=== PATIENT | female | born 1975 | race Hispanic/Latino ===

== ENCOUNTER 2016-06-08 05:56 | Day surgery (SDC) | payer BC, OTHER ==
[~2016-06-08 05:56] MED LIST: DECADRON IV ONE
[2016-06-08] MEDS ORDERED: NACL BACTERIOSTATIC INFILTRATI ONE (06:37)
[2016-06-08] MEDS ORDERED: XYLOCAINE MPF 2% ONE (07:04)
[2016-06-08] MEDS ORDERED: DIPRIVAN 10 MG/ML IV ONE ×2 (07:05→07:30)
[2016-06-08] MEDS ORDERED: SUBLIMAZE ONE (07:05)
--- NOTE | 2016-06-08 07:05 | Anesthesia Day of Surgery ---
Anesthesia Day of Surgery - Day of Surgery Patient Examined: Yes Patient H&P Reviewed: Yes Patient is NPO: Yes
--- NOTE | 2016-06-08 07:05 | Anesthesia Consultation ---
Anesthesia Consult and Med Hx Date of service: 06/08/16 - Airway Anesthetic Teeth Evaluation: Good ROM Head & Neck: Adequate Mental/Hyoid Distance: Adequate Mallampati Class: Class II - Pulmonary Exam CTA: Yes - Cardiac Exam Cardiac Exam: RRR - Pre-Operative Health Status ASA Pre-Surgery Classification: ASA1 Proposed Anesthetic Plan: General - Pulmonary SOB: No Hx Pneumonia: No - Central Nervous System Hx Psychiatric Problems: No - Other Systems Hx Alcohol Use: Yes (SOCIALLY) Hx Substance Use: No Hx Cancer: No
[2016-06-08] MEDS ORDERED: MARCAINE 0.25% INFILTRATI ONE ×2 (07:09→07:28)
[2016-06-08] MEDS ORDERED: XYLOCAINE 1%/ EPI 1:100,000 INFILTRATI ONE (07:09)
[2016-06-08] MEDS ORDERED: ZOFRAN ONE ×2 (07:32)
[2016-06-08] MEDS ORDERED: DECADRON ONE ×2 (07:32→08:04)
[2016-06-08] MEDS ORDERED: NACL 0.9% IR ONE (07:53)
[2016-06-08] MEDS ORDERED: NACL 0.9% 1000 ML 1,000 ML IV SCH (08:00)
[2016-06-08] MEDS ORDERED: CLEOCIN 900 MG/50 mL 900 MG/50 ML BAG IV NR (08:00)
[2016-06-08] MEDS ORDERED: VERSED IV NR (08:00)
[2016-06-08] MEDS ORDERED: PEPCID IV NR (08:00)
[2016-06-08] MEDS ORDERED: DECADRON IV ONE (08:06)
[2016-06-08] MEDS ORDERED: DILAUDID ONE (08:20)
--- NOTE | 2016-06-08 08:21 | Post Operative Note ---
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 Procedure: 1. Neurectomy with bursectomy third interspace left side. Anesthesia: GETA Surgeon: CARLOS TORRES Estimated blood loss: minimal Pathology: list (nerve and bursa from third interspace.) Specimen disposition: to lab Condition: stable Disposition: same day
--- NOTE | 2016-06-08 08:21 | Discharge Summary ---
Short Stay Discharge Plan Activity: no restrictions Weight Bearing Status: Touch Down Weight Bearing Diet: regular Wound: keep clean and dry Follow up with: PRIMARY CARE, [Primary Care Provider] - 7 Days
--- NOTE | 2016-06-08 08:41 | Post Anesthesia Evaluation ---
- Post Anesthesia Evaluation Patient Participated: Yes Airway Patent: Yes Stable Respiratory Function: Yes Nausea/Vomiting: No Temp > 96.8F: No Pain Manageable: Yes Adequeate Hydration: Yes Anesthesia Complications: No Block Receding Appropriately: Not Applicable Patient on Ventilator: No
[2016-06-08 09:18] VITALS: BP 120/73
--- NOTE | 2016-06-08 12:19 | Operative Report ---
SURGEON: Laureano Steward DPM MANAGEMENT ACCOUNTS MANAGER: None. PREOPERATIVE DIAGNOSIS: Painful neuroma, third interspace, left foot. POSTOPERATIVE DIAGNOSIS: Painful neuroma, third interspace, left foot with intermetatarsal space bursa. PROCEDURE: Neurectomy, third interspace with bursectomy. ANESTHESIA: General inhalational LMA with local 0.25% Marcaine plain x 5 mL. HEMOSTASIS: Pneumatic calf tourniquet 250 mmHg x 26 minutes. ESTIMATED BLOOD LOSS: Less than 1 mL. MATERIALS: None. INJECTABLES: 1 mL Decadron. PATHOLOGY: Nerve third interspace and bursa third interspace sent for pathologic diagnosis. COMPLICATIONS: None. OPERATIVE SUMMARY: On this date, the patient was deemed appropriate surgical candidate, placed on the operating room table in normal supine position. Following induction of LMA anesthesia, the following procedure was then carried out. NEURECTOMY WITH BURSECTOMY, THIRD INTERSPACE, LEFT FOOT: Attention was directed to the dorsal aspect of the third interspace in the left foot where a 3 cm linear incision was placed overlying this area. Dissection was carried through skin layer down to the level of superficial fascia with care to protect neurovascular structures. Electrocautery deemed necessary for surgical hemostasis. Dissection was carried through this layer down to the level of deep fascia. At this time, a very large swollen nerve was identified. This was the intermetatarsal nerve. I isolated the distal nerve branches third and fourth toes and went ahead and transected these sharply with a #15 blade. The nerve was grossly swollen. I reflected this back to little proximal to the deep transverse intermetatarsal ligament with the nerve appeared to be normal diameter and caliber. I went ahead and sharply resected this as well with a #15 blade. Nerve was removed in toto and then sent for pathologic diagnosis. Palpation of interspace revealed continued fullness in the area and it was identified that there was a very large bursa that had formed in this area. I went ahead and isolated this as well and I completely removed it. Due to the very large nature of this mass, I went ahead and sent this for pathologic diagnosis as well. Inspection of interspace revealed complete decompression. All other tissue was notably normal. Care was taken to assess the extension of the intrinsic musculature that it was intact as well as the metatarsophalangeal joint capsules were not violated. Wound was flushed with copious amounts of normal sterile saline. Deep ligature of 4-0 Vicryl was used to close the deep space followed by 4-0 Vicryl running suture to close subcutaneous tissue and 5-0 absorbable suture in running fashion to close the skin layer. Wound was painted with Betadine, Decadron was infiltrated into the area. Steri-Strips were applied. A dry sterile dressing was applied. The tourniquet was deflated at 26 minutes, normal capillary refill returned to all digits. The patient tolerated the above procedure and anesthesia well without complications. Vital signs stable throughout. She will be discharged with home going instructions to keep the dressings clean, dry, and intact and follow up in the office in 1 week. JOB# [id number] ARACELIS/TRAY
== END 2016-06-08 09:50 | disposition home or self-care (01) ==
LOC: OR 05:56
PROVIDERS: ATTEND Podiatrist Foot & Ankle Surgery
DX: G57.82 Other specified mononeuropathies of left lower limb (principal); Z72.89 Other problems related to lifestyle
CPT/HCPCS: 28080; 81025; 88304; J1100; J1170; J2250; J2405; J2704; J3010; J7030

== ENCOUNTER 2018-10-17 09:25 | Outpatient (CLI) | payer BC ==
--- NOTE | 2018-10-17 12:42 | Ultrasound Report ---
Transabdominal and transvaginal pelvic ultrasound INDICATION: Left pelvic pain COMPARISON: None available FINDINGS: The uterus measures [address] flexed. The uterus appears to be bicornuate or has a deep sept um. The right ovary measures 2.7 cm the left ovary measures 5.8 cm. There is a 1.4 cm cyst in the right o vary. There is a 2.9 cm complex cyst in the left ovary which is characteristic of a hemorrhagic cyst. There is a 2 cm cyst in the left ovary is well. There is a 1.4 x 0.5 x 2.6 cm structure in the left adnexa adjacent to the left ovary which might rep resent a irregular complex cyst. This could represent heterogeneous anterior within a mildly dilated fallopian tube. IMPRESSION: There are bilateral ovarian cysts. There is a 2.9 cm complex cyst in the left ovary. There is a 1.4 x 0.5 x 2.6 cm complex structure in the left adnexa may represent an irregular complex cyst arising from the ovary. This could represent complex material within the mildly dilated fallopi an tube. The uterus is either bicornuate or contains a deep septation. Signer Name: Carter Mack MD Signed: 10/17/2018 12:38 PM Workstation Name: [id number]
== END 2018-10-17 09:26 | disposition home or self-care (01) ==
LOC: SPVWC 09:25
PROVIDERS: ATTEND Surgery
DX: N83.202 Unspecified ovarian cyst, left side (principal); N83.201 Unspecified ovarian cyst, right side
CPT/HCPCS: 76830; 76856

== ENCOUNTER 2019-02-15 11:18 | Outpatient (CLI) | payer BC ==
--- NOTE | 2019-02-15 16:47 | Magnetic Resonance Report ---
MRI right elbow without contrast INDICATION: LATERAL EPICONDYLITIS, RIGHT ELBOW. COMPARISON: None FINDINGS: There is mild thickening and edema involving the common flexor and common extensor tendons , with no discrete tendon tear identified. No significant bone marrow edema identified. The biceps an d brachialis tendons are all intact. There is mildly heterogeneous bone marrow signal especially in t he distal humerus and in the proximal radius. There is also minimal edema involving the tip of the ol ecranon with mild overlying soft tissue swelling. The triceps tendon is slightly thickened with inter mediate internal T2 signal but otherwise intact. The collateral ligaments are not adequately evaluate d on this examination given lack of fat saturation fluid weighted technique. No gross neurovascular a bnormality identified. IMPRESSION: Limited exam as outlined above but there is mild tendinosis involving the common flexor, common extensor, and triceps tendons. Very mild edema is seen at the tip of the olecranon with mild overlying soft tissue swelling and no acute osseous abnormality or malalignment otherwise. No signifi cant DJD. Signer Name: Oli Pace MD Signed: 02/15/2019 4:43 PM Workstation Name: [id number]
== END 2019-02-15 11:19 | disposition home or self-care (01) ==
LOC: SPVIMAG 11:18
PROVIDERS: ATTEND Orthopaedic Surgery Hand Surgery
DX: M77.11 Lateral epicondylitis, right elbow (principal)

== ENCOUNTER 2019-03-24 10:47 | Outpatient (CLI) | payer BC ==
--- NOTE | 2019-03-27 10:36 | Mammography Report ---
DIGITAL SCREENING MAMMOGRAM WITH CAD, 03/24/2019 INDICATION: Routine screening mammography. TECHNIQUE: Digital bilateral 2D mammography was obtained in the craniocaudal and mediolateral obliq ue projections. This examination was interpreted with the benefit of Computer-Aided Detection analysi s. COMPARISON: 03/24/2018 FINDINGS: Breast Density: There are scattered areas of fibroglandular density. There is no evidence of dominant mass, suspicious calcifications or architectural distortion in eithe r breast. IMPRESSION: No mammographic evidence of malignancy. Follow up recommendation: Routine yearly BI-RADS Category 1: Negative. A "normal" or negative report should not discourage follow up or biopsy of a clinically significant f inding. A written summary of these findings will be mailed to the patient. The patient will be entered into a mammography reporting system which will generate a reminder letter for the patient's next appointmen t at the appropriate interval. The [employer] recommends yearly mammograms starting at age 40 and continuing as l leslie as a woman is in good health. Breast MRI is recommended for women with an approximate 20-25% or greater lifetime risk of breast cancer, including women with a strong family history of breast or ova maura cancer or who have been treated for Hodgkin's disease. Signer Name: Carlo Lizarraga MD Signed: 03/27/2019 10:31 AM Workstation Name: [id number]
== END 2019-03-24 10:48 | disposition home or self-care (01) ==
LOC: SPVIMAG 10:47
PROVIDERS: ATTEND Surgery
DX: Z12.31 Encounter for screening mammogram for malignant neoplasm of breast (principal); N64.89 Other specified disorders of breast
CPT/HCPCS: 77067

== ENCOUNTER 2019-04-25 09:29 | Outpatient (CLI) | payer BC ==
--- NOTE | 2019-04-25 13:28 | Magnetic Resonance Report ---
BILATERAL BREAST MR WITHOUT AND WITH GADOLINIUM INDICATION: Family history of breast cancer. History of bilateral reduction mammoplasty. COMPARISONS: 03/24/2019 bilateral mammogram. TECHNIQUE: Axial 1.0 mm T1 without, axial high-resolution 2.0 mm T2 and axial 1.0 mm dynamic vibrant high-resolution postcontrast T1 fat saturation sequences on a 1.5 Funmi magnet. The examination was p erformed with an 8-channel dedicated [employer]in[employer] breast coil. Post-processing with CAD and subtraction was performed on an [employer] workstation. 13.0 cc of MultiHance was injected without incident for the c ontrast portion of the exam. Consent was obtained prior to the administration of the contrast. FINDINGS: RIGHT BREAST: Minimal background parenchymal enhancement. No mass or suspicious enhancement. No suspi cious lymph nodes. LEFT BREAST: Minimal background parenchymal enhancement. No mass or suspicious enhancement. No suspic ious lymph nodes. IMPRESSION: 1. Negative study with no suspicious finding. 2. Recommend routine screening. BI-RADS Category 1: Negative A normal MRI does not exclude the presence of some forms of breast malignancy as literature reports s uggest that some forms of ductal carcinoma in situ or lobular carcinoma, particularly, may not be det ected on MRI. The sensitivity and specificity of MRI for cancers under 5 mm may be reduced. MRI does not replace the recommendation for annual conventional mammographic evaluation and should be used as an adjunct to mammography and physical examination as necessary. Signer Name: Carlo Lizarraga MD Signed: 04/25/2019 1:24 PM Workstation Name: [id number]
== END 2019-04-25 09:30 | disposition home or self-care (01) ==
LOC: SPVIMAG 09:29
PROVIDERS: ATTEND Surgery
DX: Z12.39 Encounter for other screening for malignant neoplasm of breast (principal); Z80.3 Family history of malignant neoplasm of breast
CPT/HCPCS: A9577; C8908; 77049

== ENCOUNTER 2019-07-07 12:06 | Outpatient (CLI) | payer BC ==
[2019-07-07 12:45] LABS: Basophils # (Auto) 0.1 K/mm3 (0.0-0.1); Basophils % (Auto) 0.8 % (0.0-1.8); Eosinophils # (Auto) 0.2 K/mm3 (0.0-0.4); Eosinophils % (Auto) 2.2 % (0.0-4.3); Hematocrit 44.5 % (30.3-42.9); Hemoglobin 15.2 gm/dl (10.1-14.3); Lymphocytes # (Auto) 1.8 K/mm3 (1.2-5.4); Lymphocytes % (Auto) 24.5 % (13.4-35.0); Mean Corpuscular HGB Conc 34 % (30-34); Mean Corpuscular Volume 96 fl (79-97); Monocytes # (Auto) 0.7 K/mm3 (0.0-0.8); Monocytes % (Auto) 9.3 % (0.0-7.3); Platelet Count 312 K/mm3 (140-440); Red Blood Count 4.61 M/mm3 (3.65-5.03); Red Cell Distribution Width 13.3 % (13.2-15.2)
[2019-07-07 13:14] LABS: Alanine Aminotransferase 21 units/L (7-56); Albumin 4.9 g/dL (3.9-5); BUN/Creatinine Ratio 20; Blood Urea Nitrogen 14 mg/dL (7-17); Calcium 9.8 mg/dL (8.4-10.2); Hemolysis Index 5; LDL Cholesterol,Direct 138 mg/dL (50-130)
[2019-07-07 13:33] LABS: Erythrocyte Sedimentation Rate 12 mm/Hr (0-20)
[2019-07-07 14:14] LABS: Chol/HDL Ratio 3.32 %; HDL Cholesterol 67 mg/dL (40-59)
[2019-07-10 14:39] LABS: Vitamin D, 25-OH, D2 <4 ng/mL
[2019-07-11 22:13] LABS: ANA Screen, IFA Negative (Negative)
== END 2019-07-07 12:07 | disposition home or self-care (01) ==
LOC: LAB 12:06
PROVIDERS: ATTEND Internal Medicine
DX: Z00.00 Encounter for general adult medical examination without abnormal findings (principal); Z12.31 Encounter for screening mammogram for malignant neoplasm of breast; Z13.220 Encounter for screening for lipoid disorders; Z13.29 Encounter for screening for other suspected endocrine disorder
CPT/HCPCS: 36415; 80053; 80061; 82306; 82607; 83036; 84443; 85025; 85652; 86038

== ENCOUNTER 2019-10-22 02:24 | Emergency (ER) | payer BC ==
[2019-10-22] MEDS ORDERED: ASPIRIN 325 MG TAB PO ONE (02:45)
[2019-10-22 03:27] LABS: Basophils % (Auto) 0.4 % (0.0-1.8); Eosinophils # (Auto) 0.3 K/mm3 (0.0-0.4); Eosinophils % (Auto) 3.4 % (0.0-4.3); Hematocrit 39.8 % (30.3-42.9); Hemoglobin 13.7 gm/dl (10.1-14.3); Lymphocytes # (Auto) 1.7 K/mm3 (1.2-5.4); Lymphocytes % (Auto) 22.9 % (13.4-35.0); Mean Corpuscular HGB Conc 34 % (30-34); Mean Corpuscular Volume 102 fl (79-97); Monocytes # (Auto) 0.6 K/mm3 (0.0-0.8); Monocytes % (Auto) 8.7 % (0.0-7.3); Platelet Count 256 K/mm3 (140-440); Red Blood Count 3.92 M/mm3 (3.65-5.03); Red Cell Distribution Width 13.8 % (13.2-15.2)
[2019-10-22] MEDS ORDERED: ACETAMINOPHEN 325 MG TAB PO ONE (03:33)
[2019-10-22] MEDS ORDERED: FAMOTIDINE 20 MG TAB PO ONE (03:33)
--- NOTE | 2019-10-22 03:39 | Emergency Department Report ---
ED Chest Pain HPI - General Chief Complaint: Chest Pain Stated Complaint: CP/DIONI PUI?: No Time Seen by Provider: 10/22/19 03:19 Source: patient, RN notes reviewed, old records reviewed Mode of arrival: Ambulatory Limitations: No Limitations - History of Present Illness Initial Comments: The patient was evaluated in the emergency department for symptoms described in the history of present illness. He/she was evaluated in the context of the global COVID-19 pandemic, which necessitated consideration that the patient might be at risk for infection with the virus that causes COVID-19. Institutional protocols and algorithms that pertain to the evaluation of patients at risk for COVID-19 are in a state of rapid change based on information released by regulatory bodies including the CDC and federal and state organizations. These policies and algorithms were followed during the patient's care in the emergency department. Please note that these policies, procedures and recommendations changed on a rapid basis. Primary care doctor: Dr Aiden Green Past medical history: Hypertension Entire history and physical examination, I am chaperoned by nurse Melisa Kirkland The patient is a pleasant 44-year-old female who is not known to myself previously. She presents to the ER with 3 complaints. Her first complaint is left-sided intermittent superior medial quadrant breast/chest wall pain, which is intermittent since 5:00 PM yesterday, which does not radiate to the back, arms or neck, without vomiting, diaphoresis, or exertional shortness of breath. No recent aspirin consumption. Positive family history of heart disease in her father, however, mother, and siblings do not have a history of heart disease, DVT or pulmonary embolism that she is aware of. She denies oral contraceptive, travel, surgery, DVT, pulmonary embolism risk factors. The chest wall pain is intermittent, aching and throbbing, increases with palpation, range of motion, and decreases with rest. She specifically denies shortness of breath with exertion. Her next complaint is dizziness/lightheadedness. This is intermittently present over the past 3 days. She states that she feels like she is almost going to pass out, but she has not passed out. This sensation of lightheadedness is not associated with chest pain. She has not passed out. Her next complaint is headache. The headache is frontal and bitemporal. The headache is not sudden or thunderclap in nature. The headache is not the worst headache of her life. She woke up with a headache yesterday, Wednesday morning. There is no neck pain or neck stiffness. She states that she is currently on her menstruation at this time, that she is not , and she reports that she typically gets a headache like this with prior menstruations. This headache today is qualitatively similar to prior episodes of menstruation. She took an ibuprofen prior to arrival. MD Complaint: chest pain, other -: Gradual, days(s) Pain Location: left chest, other Pain Radiation: none Severity: moderate Quality: aching Consistency: intermittent Improves With: rest Worsens With: palpation Aspirin use within the Past 7 Days: (0) No - Related Data Home Medications Medication Instructions Recorded Confirmed Last Taken Ibuprofen [Motrin] 200 mg PO Q6H PRN 06/01/16 06/01/16 05/29/16 Allergies Allergy/AdvReac Type Severity Reaction Status Date / Time methylergonovine maleate Allergy Itching Verified 06/01/16 10:44 [From Methergine] Penicillins Allergy Itching Verified 06/01/16 10:44 Heart Score - HEART Score History: Slightly suspicious EKG: Non-specific Age: < 45 Risk factors: 1-2 risk factors Troponin: < normal limit HEART Score: 2 - Critical Actions Critical Actions: 0-3 pts:0.9-1.7%risk of adverse cardiac event.Candidate for discharge ED Review of Systems ROS: Stated complaint: CP/DIONI Other details as noted in HPI Constitutional: denies: fever Eyes: denies: eye discharge, vision change Respiratory: denies: cough, shortness of breath Cardiovascular: chest pain. denies: syncope Gastrointestinal: denies: abdominal pain, nausea, vomiting Genitourinary: denies: dysuria Musculoskeletal: denies: back pain Neurological: headache. denies: weakness, confusion Psychiatric: anxiety ED Past Medical Hx - Past Medical History Previous Medical History?: Yes Hx Hypertension: Yes Hx GERD: No Hx HIV: No - Surgical History Past Surgical History?: Yes Hx Cholecystectomy: Yes (1998) Hx Breast Surgery: Yes ([facility]. BREAST REDUCTION AND LIFT) Additional Surgical History: Left foot, Tummy Tuck - Social History Smoking Status: Never Smoker Substance Use Type: None - Medications Home Medications: Home Medications Medication Instructions Recorded Confirmed Last Taken Type Ibuprofen [Motrin] 200 mg PO Q6H PRN 06/01/16 06/01/16 05/29/16 History ED Physical Exam - General Limitations: No Limitations General appearance: alert, in no apparent distress - Head Head exam: Present: atraumatic, normocephalic - Eye Eye exam: Present: normal appearance, PERRL, EOMI, other (Visual acuity intact to finger counting, color perception, reading at a close distance). Absent: nystagmus - ENT ENT exam: Present: normal exam, normal orophraynx, mucous membranes moist, normal external ear exam - Neck Neck exam: Present: normal inspection, full ROM. Absent: tenderness, meningismus - Respiratory Respiratory exam: Present: normal lung sounds bilaterally, chest wall tenderness. Absent: respiratory distress, wheezes, rales, rhonchi, stridor - Cardiovascular Cardiovascular Exam: Present: regular rate, normal rhythm, normal heart sounds. Absent: bradycardia, tachycardia, irregular rhythm, systolic murmur, diastolic murmur, rubs, gallop - GI/Abdominal GI/Abdominal exam: Present: soft. Absent: distended, tenderness, guarding, rebound, rigid, pulsatile mass - Extremities Exam Extremities exam: Present: normal inspection, full ROM, other (2+ pulses noted in the bilateral upper and lower extremities. There is no palpable cord. negative Homans sign. Muscular compartments are soft. The pelvis is stable.). Absent: pedal edema, calf tenderness - Back Exam Back exam: Present: normal inspection, full ROM. Absent: tenderness, CVA tenderness (R), CVA tenderness (L), paraspinal tenderness, vertebral tenderness - Neurological Exam Neurological exam: Present: alert, oriented X3, normal gait, other (There is no facial droop. The tongue is midline. Extraocular movements are intact bilaterally. There is 5 out of 5 strength in bilateral upper and lower extremities. Sensation is intact to light touch bilateral upper and lower extremities. There is no past-pointing. There is no pronator drift. There is normal wkdz-wl-aplx. There is a normal gait.). Absent: motor sensory deficit - Psychiatric Psychiatric exam: Present: anxious - Skin Skin exam: Present: warm, dry, intact, normal color. Absent: rash ED Course Vital Signs 10/22/19 10/22/19 10/22/19 02:38 04:59 05:10 Temperature 98.0 F 97.7 F Pulse Rate 86 81 Respiratory 16 18 22 Rate Blood Pressure 165/105 Blood Pressure 173/92 [Left] O2 Sat by Pulse 99 99 Oximetry - Reevaluation(s) Reevaluation #1: 10/22/19 03:40 Differential diagnosis, including but not limited to: Migraine headache, tension headache, cluster headache, orthostasis, vagal event, pulmonary embolism, coronary artery disease, costochondritis, GERD, gastritis, hiatal hernia, pneumonia, anxiety Assessment and plan: 44-year-old female with the following complaints Complaints #1, chest pain, present intermittently for the past 11 hours. EKG unremarkable x1. Not currently tachycardic, tachypneic or hypoxic, without DVT or pulmonary embolism risk factors, low risk by Wells criteria, PERC negative. Assuming negative troponin x1, patient at low risk for major adverse cardiac event as per heart score. Declines pain medication at this time. Check EKG x2, troponin x2. Given complaint #2, lightheadedness, check d-dimer to risk ratified for pulmonary embolism, although we have a very low pretest probability. Check CBC, electrolyte studies. Check x-ray of the chest. Reassess. Complaints #3: Headache GCS 15, NIH score of 0. Does not demonstrate/endorse any red flag symptomatology, states this is similar to prior headaches. Treat supportively with acetaminophen. Assuming unremarkable work-up, which we anticipate, this hospital/department has a policy/protocol whereby patients who are at low risk for major adverse cardiac event may obtain expedited outpatient follow-up with local cardiology to complete a cardiac risk ratification. Discussed this plan of care with the patient, who states that she must prefers to follow-up as an outpatient anyhow. Reevaluation #2: 10/22/19 04:[address] scan of the chest pending, repeat troponin pending, patient resting comfortably, asking to drink, asking to be discharged. Reevaluation #3: 10/22/19 05:[address] scan of the chest negative for acute disease. Vital signs are stable. Elevated blood pressure reviewed and appreciated. The patient does endorse a history of hypertension. She also appears to be fairly anxious. CT scan has not demonstrated any dissection. She can follow-up with an outpatient video game animator/primary care doctor for her elevated blood pressure. She may continue her outpatient antihypertensive therapy. Please reference the [employer] clinical policy on elevated blood pressure/hypertension which is not acutely symptomatic or decompensated. Patient endorsing readiness for discharge. She is suitable to follow-up closely with an outpatient video game animator to complete a risk stratification. 10/22/19 05:24 DANTE score - Dante Score Age > 65: (0) No Aspirin use within the Past 7 Days: (0) No 3 or more CAD Risk Factors: (0) No 2 or more Angina events in past 24 hrs: (0) No Known CAD with more than 50% Stenosis: (0) No Elevated Cardiac Markers: (0) No ST Deviation Greater than 0.5mm: (0) No DANTE Score: 0 ED Medical Decision Making - Lab Data Result diagrams: 10/22/19 03:09 10/22/19 03:09 Vital Signs 10/22/19 02:38 Temperature 98.0 F Pulse Rate 86 Respiratory 16 Rate Blood Pressure 165/105 O2 Sat by Pulse 99 Oximetry Lab Results 10/22/19 Range/Units 03:09 WBC 7.3 (4.5-11.0) K/mm3 RBC 3.92 (3.65-5.03) M/mm3 Hgb 13.7 (10.1-14.3) gm/dl Hct 39.8 (30.3-42.9) % MCV 102 H (79-97) fl MCH 35 H (28-32) pg MCHC 34 (30-34) % RDW 13.8 (13.2-15.2) % Plt Count 256 (140-440) K/mm3 Lymph % (Auto) 22.9 (13.4-35.0) % [place] % (Auto) 8.7 H (0.0-7.3) % Eos % (Auto) 3.4 (0.0-4.3) % Baso % (Auto) 0.4 (0.0-1.8) % Lymph # 1.7 (1.2-5.4) K/mm3 [place] # 0.6 (0.0-0.8) K/mm3 Eos # 0.3 (0.0-0.4) K/mm3 Baso # 0.0 (0.0-0.1) K/mm3 Seg Neutrophils % 64.6 (40.0-70.0) % Seg Neutrophils # 4.7 (1.8-7.7) K/mm3 - EKG Data -: EKG Interpreted by Me EKG shows normal: sinus rhythm, axis, intervals, QRS complexes - EKG Data When compared to previous EKG there are: previous EKG unavailable Interpretation: normal EKG 10/22/19 04:54 EKG unchanged x2. Both EKGs not consistent with a STEMI. - Radiology Data Radiology results: pending, report reviewed, image reviewed X-ray of the chest negative for acute findings. CT scan of the chest negative for acute findings. Critical care attestation.: If time is entered above; I have spent that time in minutes in the direct care of this critically ill patient, excluding procedure time. ED Disposition Clinical Impression: Chest wall pain, Lightheadedness Headache Qualifiers: Headache type: unspecified Headache chronicity pattern: episodic headache Intractability: not intractable Qualified Code(s): R51 - Headache Disposition: DC-01 TO HOME OR SELFCARE Is pt being admited?: No Does the pt Need Aspirin: No Condition: Stable Additional Instructions: Please drink plenty of fluids. Patient may alternate syip-ams-gocccet ibuprofen, with tesz-aeq-lnslvot Tylenol as needed for pain. We recommend follow-up with a video game animator within the next 2 to 3 days. Patient may contact any of the listed cardiology groups to arrange local outpatient follow-up. In addition, the patient's contact information was transmitted to our local cardiology practices, so patient may receive a phone call from [facility] cardiology to arrange close outpatient follow-up. Taken aspirin josy-qdx-wfgwafh, 81 mg daily, participate in physical activities as tolerated, and avoid overzealous strenuous physical activities. Minimize consumption of heavy spicy foods, as well as alcohol. Please return to the emergency room right away with new pain, worsening pain, migration of pain, rectal vomiting, change in mental status, confusion, inability to tolerate liquid feeds, new, worsened or different symptoms not present on the initial emergency room evaluation. Referrals: MAXIMINO MAR MD [Staff Physician] - 3-5 Days [facility] [Provider Group] - 3-5 Days [facility] [Provider Group] - 3-5 Days
[2019-10-22 03:41] LABS: INR 0.98 (0.87-1.13)
[2019-10-22 03:45] LABS: Blood Urea Nitrogen 12 mg/dL (7-17); Calcium 9.1 mg/dL (8.4-10.2); Hemolysis Index 10
[2019-10-22 03:46] LABS: BUN/Creatinine Ratio 20
[2019-10-22] MEDS ORDERED: SODIUM CHLORIDE 0.9% 1000 ML 1,000 ML IV ONE (04:01)
--- NOTE | 2019-10-22 04:53 | XRay Report ---
CHEST 1 VIEW INDICATION: Chest Pain. COMPARISON: None. FINDINGS: Support devices: None. Heart: Within normal limits. Lungs/Pleura: No acute air space or interstitial disease. Additional findings: None. IMPRESSION: No acute abnormality. Signer Name: Cipriano Negron MD Signed: 10/22/2019 4:48 AM Workstation Name: [email or web address]
--- NOTE | 2019-10-22 05:06 | Cat Scan Report ---
CT angio chest INDICATION / CLINICAL INFORMATION: CHEST PAIN, near syncope + d dimer. TECHNIQUE: Axial CT images were obtained after injection of Omnipaque 350, 100 cc IV injection. IV contrast usin g CTA protocol. 3 plane MIP / 3D reconstructions were produced. All CT scans at this location are per formed using CT dose reduction for ALARA by means of automated exposure control. COMPARISON: None available. FINDINGS: The lungs contain no mass, infiltrate or pleural fluid. No mediastinal mass or adenopathy n egative for aneurysm, dissection or pulmonary embolus. Imaging of the upper abdomen demonstrates previous cholecystectomy. No biliary dilatation. IMPRESSION: Negative for pulmonary embolus or pneumonia. Signer Name: Cipriano Negron MD Signed: 10/22/2019 5:01 AM Workstation Name: [id number]
[2019-10-22 05:48] VITALS: BP 154/76
== END 2019-10-22 05:45 | disposition home or self-care (01) ==
LOC: ED 02:24
DX: R07.89 Other chest pain (principal); R42 Dizziness and giddiness; R51 Headache; I10 Essential (primary) hypertension; Z90.49 Acquired absence of other specified parts of digestive tract; Z98.890 Other specified postprocedural states; Z88.8 Allergy status to other drugs, medicaments and biological substances; Z88.0 Allergy status to penicillin
CPT/HCPCS: 36415; 71045; 71275; 80048; 82550; 83735; 84484; 84703; 85025; 85379; 85610; 93005; 96360; 99285; J7030; Q9967

== ENCOUNTER 2020-03-25 09:14 | Outpatient (CLI) | payer BC ==
--- NOTE | 2020-03-25 10:32 | Mammography Report ---
DIGITAL SCREENING MAMMOGRAM WITH TOMOSYNTHESIS WITH CAD, 03/25/2020 CLINICAL INFORMATION / INDICATION: Routine Screening Mammography. TECHNIQUE: Digital bilateral 2D and 3D mammography with tomosynthesis was obtained in the craniocaud al and mediolateral oblique projections. Computer-Aided Detection (CAD) analysis was used for interp retation of this study. COMPARISON: 03/24/2018, 03/24/2019 FINDINGS: Breast Density: There are scattered areas of fibroglandular density. No dominant mass, suspicious calcifications, or architectural distortion in either breast. Mild stabl e bilateral nodularity. Postreduction mammoplasty changes are again noted. Overall, no interval change in the appearance of t he mammogram. IMPRESSION: No mammographic evidence of malignancy. Follow up recommendation: Routine yearly BI-RADS Category 2: Benign. A "normal" or negative report should not discourage follow up or biopsy of a clinically significant f inding. A written summary of these findings will be mailed to the patient. The patient will be entered into a mammography reporting system which will generate a reminder letter for the patient's next appointmen t at the appropriate interval. The [employer] recommends yearly mammograms starting at age 40 and continuing as l leslie as a woman is in good health. Breast MRI is recommended for women with an approximate 20-25% or greater lifetime risk of breast cancer, including women with a strong family history of breast or ova maura cancer or who have been treated for Hodgkin's disease. Signer Name: Griselda Singleton MD Signed: 03/25/2020 10:28 AM Workstation Name: [email or web address]
== END 2020-03-25 09:15 | disposition home or self-care (01) ==
LOC: SPVWC 09:14
PROVIDERS: ATTEND Surgery
DX: Z12.31 Encounter for screening mammogram for malignant neoplasm of breast (principal)
CPT/HCPCS: 77063; 77067